=== PATIENT | female | born 1995 | race Caucasian/White ===

== ENCOUNTER 2018-02-17 00:13 | Emergency (ER) | payer SELFPAY ==
--- NOTE | 2018-02-17 00:42 | PDOC ---
History of Present Illness - General History Source: Patient Exam Limitations: No Limitations - History of Present Illness Initial Comments: 02/17/18 00:56 The patient is a 22 year old female, with no significant past medical history, who presents to the emergency department with, 3 days of back pain. She describes her back pain to be a worsening constant achy pressure, localized to the lower thoracic region and to disrupt her normal sleep cycle. She denies any alleviating factors. Shes taken Tylenol and Advil PM, without relief. Her last menses was 01/16. She denies recent fevers, chills, headache or dizziness. She denies recent nausea, vomit, diarrhea or constipation. She denies recent dysuria, frequency, urgency or hematuria. She denies recent chest pain or shortness of breath. Allergies: NKA Past surgical history: None reported. Social history: Former smoker (Quit 2015). Denies EtOH use and recreational drug use. Primary Care Physician: Dr. Ibarra <Jono Sargent - Last Filed: 02/17/18 00:56> - General History Source: Patient <KrystaAlbert cm - Last Filed: 02/17/18 01:54> - General Chief Complaint: Back Pain Stated Complaint: BACK PAIN Time Seen by Provider: 02/17/18 00:31 Past History <Jono Sargent - Last Filed: 02/17/18 00:56> - Immunization History Immunization Up to Date: Yes - Suicide/Smoking/Psychosocial Hx Smoking History: Never smoked Have you smoked in the past 12 months: No Number of Cigarettes Smoked Daily: 0 If you are a former smoker, when did you quit?: 2016 Information on smoking cessation initiated: No Hx Alcohol Use: No Drug/Substance Use Hx: No <Albert England - Last Filed: 02/17/18 01:54> - Past Medical History Allergies/Adverse Reactions: Allergies Allergy/AdvReac Type Severity Reaction Status Date / Time No Known Allergies Allergy Verified 02/17/18 00:25 Home Medications: Ambulatory Orders Ibuprofen 800 mg PO TID #30 tablet 02/17/18 Methocarbamol [Robaxin -] 500 mg PO TID #30 tablet 02/17/18 Review of Systems - Review of Systems Able to Perform ROS?: Yes Comments:: 02/17/18 00:57 CONSTITUTIONAL: Absent: fever, no chills, no fatigue EYES: Absent: visual changes ENT: Absent: ear pain, no sore throat CARDIOVASCULAR: Absent: chest pain, no palpitations RESPIRATORY: Absent: cough, no SOB GI: Absent: abdominal pain, no nausea, no vomiting, no constipation, no diarrhea GENITOURINARY: Absent: dysuria, no frequency, no hematuria MUSKULOSKELETAL: Present: Back pain. Absent: no arthralgia, no myalgia SKIN: Absent: rash NEURO: Absent: headache All Other Systems: Reviewed and Negative <Jono Sargent - Last Filed: 02/17/18 00:56> *Physical Exam - Vital Signs Last Vital Signs Temp Pulse Resp BP Pulse Ox 98.4 F 71 20 136/85 100 02/17/18 00:25 02/17/18 00:25 02/17/18 00:25 02/17/18 00:25 02/17/18 00:25 - Physical Exam Comments: 02/17/18 00:57 GENERAL: Well developed, well nourished. Awake and alert. No acute distress. HEENT: Normocephalic, atraumatic. PERRLA, EOMI. No conjunctival pallor. Sclera are non- icteric. Moist mucous membranes. Oropharynx is clear. NECK: Supple. Full ROM. No JVD. Carotid pulses 2+ and symmetric, without bruits. No thyromegaly. No lymphadenopathy. CARDIOVASCULAR: Regular rate and rhythm. No murmurs, rubs, or gallops. Distal pulses are 2+ and symmetric. PULMONARY: No evidence of respiratory distress. Lungs clear to auscultation bilaterally. No wheezing, rales or rhonchi. ABDOMINAL: Soft. Non-tender. Non-distended. No rebound or guarding. No organomegaly. Normoactive bowel sounds. MUSCULOSKELETAL Normal range of motion at all joints. No bony deformities or tenderness. No CVA tenderness. No point tenderness. No meningeal signs. EXTREMITIES: No cyanosis. No clubbing. No edema. No calf tenderness. SKIN: Warm and dry. Normal capillary refill. No rashes. No jaundice. NEUROLOGICAL: Alert, awake, appropriate. Cranial nerves 2-12 intact. No deficits to light touch and temperature in face, upper extremities and lower extremities. No motor deficits in the in face, upper extremities and lower extremities. Normoreflexic in the upper and lower extremities. Normal speech. Toes are down- going bilaterally. Gait is normal without ataxia. PSYCHIATRIC: Cooperative. Good eye contact. Appropriate mood and affect. <Jono Sargent - Last Filed: 02/17/18 00:56> - Vital Signs Last Vital Signs Temp Pulse Resp BP Pulse Ox 98.4 F 71 20 136/85 100 02/17/18 00:25 02/17/18 00:25 02/17/18 00:25 02/17/18 00:25 02/17/18 00:25 <Albert England - Last Filed: 02/17/18 01:54> *DC/Admit/Observation/Transfer - Attestations Scribe Attestion: 02/17/18 00:59 Documentation prepared by Jono Sargent, acting as medical delivery technician for Albert England DO. <Jono Sargent - Last Filed: 02/17/18 00:56> - Discharge Dispostion Decision to Admit order: No <Albert England - Last Filed: 02/17/18 01:54> Diagnosis at time of Disposition: Back pain Qualifiers: Back pain location: thoracic back pain Chronicity: unspecified Back pain laterality: bilateral Qualified Code(s): M54.6 - Pain in thoracic spine - Discharge Dispostion Disposition: HOME Condition at time of disposition: - Prescriptions Prescriptions: Ibuprofen 800 mg PO TID #30 tablet Methocarbamol [Robaxin -] 500 mg PO TID #30 tablet - Referrals Referrals: Kia Ibarra MD [Primary Care Provider] - - Patient Instructions Printed Discharge Instructions: DI for Thoracic Back Pain Additional Instructions: take medications. avoid heavy lifting. Follow up with your doctor if symptoms don't improve - Post Discharge Activity Forms/Work/School Notes: Back to Work
[2018-02-17] MEDS ORDERED: METHOCARBAMOL 500 MG TABLET PO ONE (00:46)
[2018-02-17] MEDS ORDERED: IBUPROFEN 400 MG TABLET (FP) PO ONE ×2 (00:46→01:19)
[2018-02-17] MEDS ORDERED: METHOCARBAMOL 500 MG TABLET ONE (01:18)
[2018-02-17 01:40] LABS: URINE APPEARANCE CLEAR; URINE BILIRUBIN NEGATIVE (<2.0 mg/dL); URINE COLOR LTYELLOW; URINE GLUCOSE (UA) NEGATIVE (NEGATIVE); URINE KETONE NEGATIVE (NEGATIVE); URINE LEUK ESTERASE NEGATIVE (NEGATIVE); URINE NITRITE NEGATIVE (NEGATIVE); URINE PROTEIN NEGATIVE (NEGATIVE); URINE UROBILINOGEN NEGATIVE mg/dL (0.2-1.0)
[2018-02-17 01:50] LABS: HCG,QUALITATIVE URINE NEGATIVE
[2018-02-17 07:08] VITALS: BP 122/72; PULSE 73; TEMP 98
== END 2018-02-17 02:03 | disposition home or self-care (01) ==
LOC: JER 00:13
DX: M54.6 Pain in thoracic spine (principal)
CPT/HCPCS: 81003; 84703; 99281-25

== ENCOUNTER 2019-01-19 18:27 | Emergency (ER) | payer OTHER | END 2019-01-19 18:48 | disposition home or self-care (01) | LOC: JERFT 18:27 ==